=== PATIENT | male | born 1995 | race Caucasian/White ===

== ENCOUNTER 2019-09-27 12:29 | Outpatient (CLI) | payer OTHER ==
--- NOTE | 2019-09-27 13:36 | MRI ---
EXAM: Right knee MRI without contrast: HISTORY: Pain following injury playing soccer COMPARISON: None FINDINGS: Multiplanar, multisequence MRI examination of the knees performed. No evidence for significant joint effusion. No evidence for significant articular cartilage loss Medial meniscus: Fairly extensive complex tear including the posterior horn extending into the body w ith a flap component at the level of the mid body as well as a small flap component projecting anteriorly off the posterior root Lateral meniscus: Unremarkable. Anterior cruciate ligament:Intact. Posterior cruciate ligament: Intact. Medial collateral ligament complex: Intact. Lateral collateral ligament complex: Intact. Quadriceps and patellar tendons: Intact. Extensor mechanism: Unremarkable. No evidence for acute osteochondral defect or abnormal marrow signal. There is a somewhat elongated thin synovial cystic collection extending into Hoffa's fat from the [place] nt. There is some fluid in the deep infrapatellar bursa IMPRESSION: Extensive complex tear medial meniscus. Elongated synovial cyst projecting into Hoffa's fat from the joint.
== END 2019-09-27 12:30 | disposition home or self-care (01) ==
LOC: MRI 12:29
DX: M25.561 Pain in right knee (principal); S83.231A Complex tear of medial meniscus, current injury, right knee, initial encounter; M71.38 Other bursal cyst, other site